=== PATIENT | female | born 2000 | race Caucasian/White ===

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

== ENCOUNTER 2020-03-27 10:40 | Inpatient (IN) | payer OTHER ==
[~2020-03-27] VITALS: Ht 149.9 cm; Wt 57.2 kg
[2020-03-27] MEDS ORDERED: SYNTHROID137 MCG PO (11:01)
[2020-03-27] MEDS ORDERED: PRENATAL 19 TA1 EACH PO (11:02)
[2020-03-27] MEDS ORDERED: VITAMINA D PO (11:03)
[2020-03-27] MEDS ORDERED: FOLIC ACID20 MG PO (11:03)
== END 2020-03-30 15:50 | disposition home or self-care (01) | DRG 788 ==
LOC: LDR 10:40 → OB/GYN 10:40 → O/R 17:21 → OB/GYN 19:40
PROVIDERS: ADMIT Obstetrics & Gynecology; ATTEND Obstetrics & Gynecology
PROC: 3E033VJ Introduction of Other Hormone into Peripheral Vein, Percutaneous Approach (ICD-10-PCS; 2020-03-27)
PROC: 4A1HXFZ Monitoring of Products of Conception, Cardiac Rhythm, External Approach (ICD-10-PCS; 2020-03-27)
PROC: 10D00Z1 Extraction of Products of Conception, Low, Open Approach (ICD-10-PCS; principal; 2020-03-27 16:00)
DX: O65.4 Obstructed labor due to fetopelvic disproportion, unspecified (principal); O99.284 Endocrine, nutritional and metabolic diseases complicating childbirth; Z3A.39 39 weeks gestation of pregnancy; Z37.0 Single live birth